=== PATIENT | male | born 1955 | race Caucasian/White ===

== ENCOUNTER 2021-04-17 14:39 | Inpatient (IN) | payer MEDICARE ==
[~2021-04-17] VITALS: Ht 190.5 cm; Wt 112.4 kg
[~2021-04-17 14:39] MED LIST: ANTACID; BP MED; CELE200 PO; CYCL10 PO; GLYBURIDE; LISI5 PO; METF500 PO; PANT40 PO; PRAV20 PO
[2021-04-17 15:16] LABS: BASOPHILS ABSOLUTE AUTO 0.04 K/mm3 (0.00-0.23); BASOPHILS PERCENT AUTO 1 % (0-2); EOSINOPHILS ABSOLUTE AUTO 0.18 K/mm3 (0.00-0.68); EOSINOPHILS PERCENT AUTO 3 % (0-6); Hematocrit 50.4 % (37.0-53.0); Hemoglobin 16.4 g/dL (13.5-17.5); IMMATURE GRAN ABSOLUTE AUTO 0.02 K/mm3 (0.00-0.10); IMMATURE GRAN PERCENT AUTO 0 % (0-1); LYMPHOCYTES PERCENT AUTO 31 % (21-46); MONOCYTES ABSOLUTE AUTO 0.59 K/mm3 (0.16-1.47); MONOCYTES PERCENT AUTO 8 % (4-13); Mean Corpuscular HGB 28.5 pg (26.0-34.0); Mean Corpuscular HGB Conc 32.5 g/dL (31.5-36.5); Mean Corpuscular Volume 88 fL (80-100); Mean Platelet Volume 10.1 fL (9.1-12.4); NEUTROPHILS ABSOLUTE AUTO 3.99 K/mm3 (1.96-9.15); NEUTROPHILS PERCENT AUTO 57 % (41-73); Platelet Count 178 K/mm3 (150-400); RDW Coefficient Variation 14.1 % (11.7-14.2); RDW Standard Deviation 44.7 fL (35.1-46.3); Red Blood Cell Count 5.76 M/mm3 (4.30-5.90); White Blood Cell Count 7.02 K/mm3 (4.00-11.30)
[2021-04-17 15:43] LABS: Alanine Aminotransfer (ALT/SGP 41 U/L (12-78); Albumin, Blood 3.9 g/dL (3.4-5.0); Albumin/Globulin Ratio 0.9 (0.8-1.8); Alk Phos 195 U/L (50-136); Anion Gap 7 mmol/L (6-16); Aspartate Aminotrans (AST/SGOT 31 U/L (12-37); Bilirubin, Total 0.6 mg/dL (0.1-1.0); Blood Urea Nitrogen 16 mg/dL (8-24); Bun/Creatinine Ratio 16.3 (12.0-20.0); CO2, Blood 25 mmol/L (21-32); Calcium, Blood 9.9 mg/dL (8.5-10.1); Chloride, Blood 107 mmol/L (98-108); Creatinine, Blood 0.98 mg/dL (0.60-1.20); Globulin, Blood 4.4 g/dL (2.2-4.0); Glomerular Filtration Rate >60 (60-); Glucose, Blood 149 mg/dL (70-99); Potassium, Blood 4.4 mmol/L (3.5-5.5); Sodium, Blood 139 mmol/L (136-145); Total Protein, Blood 8.3 g/dL (6.4-8.2); Troponin I 0.025 ng/mL (0.000-0.040)
[2021-04-17] MEDS ORDERED: METFORMIN HCL1000 M7 PO (16:44)
[2021-04-17] MEDS ORDERED: JANTOVEN5 M2 PO (16:45)
[2021-04-17] MEDS ORDERED: Prinivil10 MG PO (16:45)
[2021-04-17] MEDS ORDERED: WARF5 PO (17:53)
[2021-04-17 18:44] LABS: International Normalized Ratio 1.56; Prothrombin Time Results 16.4 Sec (9.7-11.5)
[2021-04-17] MEDS ORDERED: JARDIANCE25 MG PO (20:18)
[2021-04-18 03:30] LABS: International Normalized Ratio 1.48; Prothrombin Time Results 15.6 Sec (9.7-11.5)
--- NOTE | 2021-04-18 06:44 | NUR ---
SHIFT SUMMARY: SHIRA WAS ADMITTED TO THE FLOOR LAST NIGHT FOR CHEST PAIN THAT STARTED 3 WEEKS AGO. PAIN HAS BEEN SLOWLY GETTING WORSE AND LAST NIGHT WAS ENOUGH THAT THE MADE HIM COME IN. STATES CHEST HURTS MID-STERNUM AND HE HAS TO FIND A PLACE TO SIT IMMEDIATLEY OR GETS REALLY BAD. ONCE SITTING FOR A SHORT BIT IT GOES AWAY. SOMETIMES IT WILL START RIGHT BACK UP BUT TENDS TO BE SITUATED AROUND LONG ACTIVITY. HE GETS SOB AND SOME TIMES WILL HAVE THE PAIN UP THE LEFT SIDE OF HIS NECK. HAS NO HISTORY OF HEART PROBLEMS. HX OF PE BUT CT WAS NEGATIVE FOR PE. LUNGS ARE CLEAR. HR SINUS ON TELE. AOX3, INDEPENDENT IN THE ROOM. TROPONIN HAVE BEEN NEGATIVE. BNP IS NEGATIVE. PT WAS SLIGHTLY ELEVATED, BUT REST OF LABS WERE NORMAL. NO EDEMA NOTED. ON RA. VITALS ARE WNL, AFEBRILE. HAS BEEN GOOD ALL NIGHT. NPO SINCE 4 BUT DID HAVE POP HE BROUGHT IT UP WITH HIM TO THE FLOOR. WILL REPORT TO DAYSHIFT. CALL LIGHT IS IN REACH.
--- NOTE | 2021-04-19 04:24 | NUR ---
SHIFT SUMMARY NO ACUTE CHANGES TO REPORT THIS SHIFT, PT HAS RESTED T/O SHIFT. HE HAS DENIED CHEST PAIN. INDEPENDENT IN THE ROOM. RESP E/U ON RA. NSR ON TELE. PLAN IS FOR SECOND PORTION OF STRESS TEST TODAY, AND THEN POSSIBLE DC. PT IS AWARE OF CURRENT PLAN. BED IN LOWEST POSITION, CALL LIGHT WITHIN REACH.
[2021-04-19 05:08] LABS: International Normalized Ratio 1.36; Prothrombin Time Results 14.4 Sec (9.7-11.5)
--- NOTE | 2021-04-19 18:46 | NUR ---
a+o, completed 2nd half of stress test today, air, saline locked, call light in reach, independant in rm, able to make needs known, looking forward to going home tomorrow, family in to visit, will continue to monitor and treat until share bsr with noc nurse and pt
--- NOTE | 2021-04-20 03:37 | NUR ---
SHIFT SUMMARY PATIENT HAD NO ACUTE CHANGES OBSERVED. AXOX 4 AND INDEPENDENT IN ROOM. DENIES CHEST PAIN, SOB, AND N/V. VSS/AFEBRILE. ON ROOM AIR. PIVS REMAIN INTACT. SOW [employer] TECHNICIAN REPORTS ST 105. CBG 154. COOPERATIVE WITH CARE. CALL LIGHT IN REACH. BED IN LOWEST POSITION. WILL CONTINUE TO MONITOR UNTIL DAY SHIFT NURSE ASSUMES CARE.
[2021-04-20 05:26] LABS: International Normalized Ratio 1.49; Prothrombin Time Results 15.7 Sec (9.7-11.5)
--- NOTE | 2021-04-20 10:59 | NUR ---
ECHOCARDIOGRAM COMPLETE
[2021-04-20 16:40] LABS: SARS-Cov-2 (COVID-19) PCR, MMC NEGATIVE (NEGATIVE)
--- NOTE | 2021-04-20 18:22 | NUR ---
PT TRANSFERRED FROM [facility] PRIOR TO BEING ON MED UNIT. PT IS ALERT AND ORIENTED AND VERY PLEASANT AND COOPERATIVE WITH CARES. UPON ARRIVAL BP ELEVATED, TR SITE WAS ACHING. COREG GIVEN TO BRING BP WNL AND 2CC REMOVED FROM TR AT 1725 ONCE BP WAS NORMAL. NO BLEEDING AT SITE AND PT REPORTED INSTANT RELIEF. PT HAS HAD NO COMPLAINTS. AWAITING [facility] TRANSFER TO [facility] SATURDAY. CALL LIGHT WITHIN REACH
--- NOTE | 2021-04-21 06:12 | NUR ---
PATIENT IS ALERT AND ORIENTATED, ABLE TO MAKE NEEDS KNOWN, USES CALL LIGHT APPROPRIATELY, INDENPENDENT TO THE RESTROOM. PATIENT REACHED HOMOSTATISIS AT 0200 TR BAND IS NO LONGER ON THE RIGHT RADIAL, SPLINT IS IN PLACE. PATIENT IS NERVOUS ABOUT GOING TO [facility]. NO COMPLAINTS OF CHEST PRESSURE, PAIN, AND /OR SOB THROUGHOUT THE NIGHT.
--- NOTE | 2021-04-21 08:00 | NUR ---
pt is being [facility] transfered for bypass. he is aware, waiting on room.
--- NOTE | 2021-04-21 08:00 | NUR ---
pt laying in bed watching tv, a/ox3, pleasant and cooperative with care, follows commands well, denies pain at this time, reports his chest discomfort started about three weeks ago, lungs are clear dim in bases, resp even and unlabord, no cough noted, hrr, tele in place running sr per monitor, see strip, no edema noted, ppp+2, cap refill <3sec, vs stable, afebrile, iv site is clear and patent, btx4, abd flat soft nontender, voids without diff, skin c/w/d, maew, em, call light in reach.
--- NOTE | 2021-04-21 08:39 | NUR ---
AT Dr Gonzalez's request, transfer center was called to find out status of [facility] transfer. Reported to February in heart center *(Dr. Gonzalez I am told is in a procedure) on the cardilogists phone that there is currently no bed availability and no pending discharges yet this morning. I asked also that the doctor put in the [facility] transfer orders in, as we do not have them.
--- NOTE | 2021-04-21 15:30 | NUR ---
pt is being transfered to [facility] in [place], report was given to recieving nurse, left via gurkaterine, in attendence, report and paper work given to emt.
== END 2021-04-21 15:32 | disposition short-term general hospital (02) | DRG 287 ==
LOC: ER 14:39 → MEDS 14:40 → PCU 04-20 13:46
PROVIDERS: Emergency Medicine; Internal Medicine Cardiovascular Disease; Pharmacist; Physician Assistant; ADMIT Family Medicine
PROC: B2111ZZ Fluoroscopy of Multiple Coronary Arteries using Low Osmolar Contrast (ICD-10-PCS; principal; 2021-04-20)
PROC: 4A033BC Measurement of Arterial Pressure, Coronary, Percutaneous Approach (ICD-10-PCS; 2021-04-20)
PROC: B41D1ZZ Fluoroscopy of Aorta and Bilateral Lower Extremity Arteries using Low Osmolar Contrast (ICD-10-PCS; 2021-04-20)
DX: I25.10 Atherosclerotic heart disease of native coronary artery without angina pectoris (principal); K21.9 Gastro-esophageal reflux disease without esophagitis; E78.5 Hyperlipidemia, unspecified; Z20.822 Contact with and (suspected) exposure to COVID-19; Z96.651 Presence of right artificial knee joint; E11.9 Type 2 diabetes mellitus without complications; I95.9 Hypotension, unspecified; I10 Essential (primary) hypertension; E66.9 Obesity, unspecified; Z86.711 Personal history of pulmonary embolism; Z79.84 Long term (current) use of oral hypoglycemic drugs; Z79.899 Other long term (current) drug therapy; Z79.01 Long term (current) use of anticoagulants; Z98.890 Other specified postprocedural states; Z68.30 Body mass index [BMI] 30.0-30.9, adult
CPT/HCPCS: 36415; 71046; 71260; 75630; 76937; 78452; 80053; 82947; 83880; 84484; 85025; 85347; 85610; 93005; 93010; 93017; 93454; 93571; 99152; 99153; 99285-25; A9270; A9500; C1769; C1887; C1894; C8923; G0378; J0706; J1650; J1815; J2250; J2785; J3010; J7030; Q9957; Q9967; U0004

== ENCOUNTER 2021-05-07 13:54 | Emergency (ER) | payer MEDICARE ==
[~2021-05-07] VITALS: Ht 190.5 cm; Wt 106.6 kg
[~2021-05-07 13:54] MED LIST changes: +JANTOVEN5 M2 PO; +JARDIANCE25 MG PO; +METFORMIN HCL1000 M7 PO; +Prinivil10 MG PO; +WARF5 PO
== END 2021-05-07 14:31 | disposition home or self-care (01) ==
LOC: ER 13:54
DX: Z48.01 Encounter for change or removal of surgical wound dressing (principal); E78.5 Hyperlipidemia, unspecified; Z79.01 Long term (current) use of anticoagulants; Z79.899 Other long term (current) drug therapy
CPT/HCPCS: 99283

== ENCOUNTER → 2022-01-03 | Outpatient (CLI) | payer MEDICARE | END | disposition home or self-care (01) | LOC: LAB SHORT 11:43 | DX: C44.42 Squamous cell carcinoma of skin of scalp and neck (principal); L81.4 Other melanin hyperpigmentation; L57.9 Skin changes due to chronic exposure to nonionizing radiation, unspecified | CPT/HCPCS: 88305 ==

== ENCOUNTER → 2022-01-29 | Outpatient (CLI) | payer MEDICARE | END | disposition home or self-care (01) | LOC: PLD 11:13 → LAB SHORT 11:13 | DX: L57.0 Actinic keratosis (principal); L81.4 Other melanin hyperpigmentation | CPT/HCPCS: 88305 ==

== ENCOUNTER 2023-07-01 12:35 | Inpatient (IN) | payer MEDICARE ==
[~2023-07-01] VITALS: Ht 190.5 cm; Wt 121.0 kg
[2023-07-01 13:30] LABS: BASOPHILS ABSOLUTE AUTO 0.05 K/mm3 (0.00-0.23); BASOPHILS PERCENT AUTO 1 % (0-2); EOSINOPHILS ABSOLUTE AUTO 0.12 K/mm3 (0.00-0.68); EOSINOPHILS PERCENT AUTO 1 % (0-6); Hematocrit 44.5 % (37.0-53.0); Hemoglobin 15.1 g/dL (13.5-17.5); IMMATURE GRAN ABSOLUTE AUTO 0.03 K/mm3 (0.00-0.10); IMMATURE GRAN PERCENT AUTO 0 % (0-1); LYMPHOCYTES ABSOLUTE AUTO 1.87 K/mm3 (0.84-5.20); LYMPHOCYTES PERCENT AUTO 18 % (21-46); MONOCYTES ABSOLUTE AUTO 0.67 K/mm3 (0.16-1.47); MONOCYTES PERCENT AUTO 7 % (4-13); Mean Corpuscular HGB 28.8 pg (26.0-34.0); Mean Corpuscular HGB Conc 33.9 g/dL (31.5-36.5); Mean Corpuscular Volume 85 fL (80-100); NEUTROPHILS ABSOLUTE AUTO 7.51 K/mm3 (1.96-9.15); NEUTROPHILS PERCENT AUTO 73 % (41-73); Platelet Count 164 K/mm3 (150-400); RDW Coefficient Variation 13.7 % (11.7-14.2); RDW Standard Deviation 42.7 fL (35.1-46.3); Red Blood Cell Count 5.24 M/mm3 (4.30-5.90); White Blood Cell Count 10.25 K/mm3 (4.00-11.30)
[2023-07-01 13:46] LABS: Albumin, Blood 3.5 g/dL (3.4-5.0); Albumin/Globulin Ratio 0.9 (0.8-1.8); Bilirubin, Total 0.6 mg/dL (0.1-1.0); Bun/Creatinine Ratio 11.4 (12.0-20.0); Calcium, Blood 9.4 mg/dL (8.5-10.1); Creatinine, Blood 1.05 mg/dL (0.60-1.20); Potassium, Blood 4.4 mmol/L (3.5-5.5); Total Protein, Blood 7.5 g/dL (6.4-8.2)
[2023-07-01 19:16] LABS: International Normalized Ratio 3.34; Prothrombin Time Results 32.8 Sec (9.7-11.5)
[2023-07-01] MEDS ORDERED: WARF7.5 PO (19:26)
[2023-07-01 22:16] VITALS: BP 144/80
--- NOTE | 2023-07-01 23:54 | NUR ---
PT ADMITTED AFEBRILE,BUT IS SHIVERING AND C/O FEELING "FREEZING" FOLLOW UP TEMPS 100.2 THEN [address] OH AND RECEIVED ORDERS.
[2023-07-02] VITALS (9 sets, daily range): BP systolic 102–156; BP diastolic 59–98
--- NOTE | 2023-07-02 02:54 | NUR ---
PT RECEIVED 1 LITER NS BOLUS AND IBUPROFEN PER ORDERS.NO VOID YET SINCE ARRIVAL TO FLOOR.PT VERB VOIDED IN ER.SEE BLADDER SCAN RESULTS.PT NOW AFEBRILE AT 98.7.
[2023-07-02 04:37] LABS: BASOPHILS ABSOLUTE AUTO 0.04 K/mm3 (0.00-0.23); BASOPHILS PERCENT AUTO 0 % (0-2); EOSINOPHILS ABSOLUTE AUTO 0.05 K/mm3 (0.00-0.68); EOSINOPHILS PERCENT AUTO 1 % (0-6); Hematocrit 38.6 % (37.0-53.0); Hemoglobin 12.9 g/dL (13.5-17.5); IMMATURE GRAN ABSOLUTE AUTO 0.05 K/mm3 (0.00-0.10); IMMATURE GRAN PERCENT AUTO 1 % (0-1); LYMPHOCYTES ABSOLUTE AUTO 1.07 K/mm3 (0.84-5.20); LYMPHOCYTES PERCENT AUTO 10 % (21-46); MONOCYTES ABSOLUTE AUTO 0.73 K/mm3 (0.16-1.47); MONOCYTES PERCENT AUTO 7 % (4-13); Mean Corpuscular HGB 28.6 pg (26.0-34.0); Mean Corpuscular HGB Conc 33.4 g/dL (31.5-36.5); Mean Corpuscular Volume 86 fL (80-100); Mean Platelet Volume 10.2 fL (9.1-12.4); NEUTROPHILS ABSOLUTE AUTO 8.78 K/mm3 (1.96-9.15); NEUTROPHILS PERCENT AUTO 82 % (41-73); Platelet Count 135 K/mm3 (150-400); RDW Standard Deviation 43.7 fL (35.1-46.3); Red Blood Cell Count 4.51 M/mm3 (4.30-5.90); White Blood Cell Count 10.72 K/mm3 (4.00-11.30)
[2023-07-02 04:39] LABS: International Normalized Ratio 3.04
[2023-07-02 04:53] LABS: Bun/Creatinine Ratio 12.4 (12.0-20.0); Calcium, Blood 8.8 mg/dL (8.5-10.1); Creatinine, Blood 1.13 mg/dL (0.60-1.20)
[2023-07-02 05:59] LABS: Source, Urine Voided
[2023-07-02 06:09] LABS: Appearance, Urine Clear (Clear); Bilirubin, Urine Neg (Neg); Blood, Urine 1+ (Neg); Color, Urine Yellow (P-Yellow); Glucose Qualitative, Urine 1+ (Neg); Ketones, Urine 1+ (Neg); Leukocyte Esterase, Urine Neg (Neg); Nitrite, Urine Neg (Neg); Protein, Urine 2+ (Neg); Urobilinogen, Urine NORM (Normal)
[2023-07-02 06:25] LABS: Bacteria Few /hpf; Squamous Epithelial Cells Few /hpf (Few); White Blood Cells, Urine 0-2 /hpf (0-5)
--- NOTE | 2023-07-02 08:08 | NUR ---
SUMMARY PT VOIDED WITH U/A SENT. AFEBRILE. RESTING QUIETLY.NPO FOR LIKELY OR TODAY.
--- NOTE | 2023-07-02 14:55 | NUR ---
Pt. is awake in bed and welcomes my visit. Pt. is pleasant and is awaiting surgery for appedicitis. Facilitate a lengthy life review and listen with empathy, interest, and a calming presence. Pt. displays evidence of trust and confidence as he awaits suregery. Considered matters of keith and belief. Prayed with Pt. pt. verbalized gratitude for the spiritual care visit and welcomed [facility] graduate rn to return.
--- NOTE | 2023-07-02 16:21 | NUR ---
[facility] TRANSFUSION FINISHED, LUNGS CLEAR, DENIES ANY PAIN OR ANY DISCOMFORT AT THIS TIME, TEMP INCREASED FROM 98.0 TO 100.3, DR. ORTIZ NOTIFIED, ORDERED TYLENOL, TOLERATING CLEAR LIQUIDS WELL, INDEPENDENT IN ROOM, PT STATES DR. THOMPSON SAW HIM TODAY AND PLAN IS FOR OR TOMORROW, NO OTHER CHANGES THIS SHIFT.
[2023-07-02 18:14] LABS: International Normalized Ratio 1.59; Prothrombin Time Results 16.3 Sec (9.7-11.5)
[2023-07-03] VITALS (14 sets, daily range): BP systolic 101–156; BP diastolic 43–89
[2023-07-03 05:05] LABS: BASOPHILS ABSOLUTE AUTO 0.03 K/mm3 (0.00-0.23); BASOPHILS PERCENT AUTO 0 % (0-2); EOSINOPHILS ABSOLUTE AUTO 0.09 K/mm3 (0.00-0.68); EOSINOPHILS PERCENT AUTO 1 % (0-6); Hematocrit 36.5 % (37.0-53.0); Hemoglobin 12.1 g/dL (13.5-17.5); IMMATURE GRAN ABSOLUTE AUTO 0.04 K/mm3 (0.00-0.10); IMMATURE GRAN PERCENT AUTO 1 % (0-1); LYMPHOCYTES ABSOLUTE AUTO 1.19 K/mm3 (0.84-5.20); LYMPHOCYTES PERCENT AUTO 17 % (21-46); MONOCYTES ABSOLUTE AUTO 0.66 K/mm3 (0.16-1.47); MONOCYTES PERCENT AUTO 10 % (4-13); Mean Corpuscular HGB 28.4 pg (26.0-34.0); Mean Corpuscular HGB Conc 33.2 g/dL (31.5-36.5); Mean Corpuscular Volume 86 fL (80-100); Mean Platelet Volume 9.9 fL (9.1-12.4); NEUTROPHILS ABSOLUTE AUTO 4.96 K/mm3 (1.96-9.15); NEUTROPHILS PERCENT AUTO 71 % (41-73); Platelet Count 129 K/mm3 (150-400); RDW Coefficient Variation 13.8 % (11.7-14.2); RDW Standard Deviation 42.8 fL (35.1-46.3); Red Blood Cell Count 4.26 M/mm3 (4.30-5.90); White Blood Cell Count 6.97 K/mm3 (4.00-11.30)
[2023-07-03 05:17] LABS: International Normalized Ratio 1.49; Prothrombin Time Results 15.3 Sec (9.7-11.5)
[2023-07-03 05:35] LABS: Anion Gap 7 mmol/L (6-16); Blood Urea Nitrogen 10 mg/dL (8-24); Bun/Creatinine Ratio 9.8 (12.0-20.0); CO2, Blood 24 mmol/L (21-32); Calcium, Blood 8.9 mg/dL (8.5-10.1); Chloride, Blood 105 mmol/L (98-108); Creatinine, Blood 1.02 mg/dL (0.60-1.20); Glomerular Filtration Rate 79 (60-); Glucose, Blood 142 mg/dL (70-99); Potassium, Blood 3.8 mmol/L (3.5-5.5); Sodium, Blood 136 mmol/L (136-145)
--- NOTE | 2023-07-03 06:53 | NUR ---
SHIFT SUMMARY NOC. PT VERBALIZED RESTING WELL THIS SHIFT. PT HAS BEEN NPO SINCE MIDNIGHT DUE TO EXPECTED SURGERY TODAY. PT MEDICATED FOR PAIN 1 TIME THIS SHIFT. PT VERBALIZED IMPROVEMENT WITH MEDICATION.
--- NOTE | 2023-07-03 14:42 | NUR ---
PT TO OR AT ABOUT 1330
--- NOTE | 2023-07-03 18:48 | NUR ---
POST OP: REPORT RECEIVED FROM MANAGER TRANSPORT ANGELLA, PT TO UNIT AT 1800. PT IS ORIENTED, DROWSY. AWAKENS TO VOICE. VSS, SURGICAL SITE WNL. PT OFFERED ICE CHIPS, JELLO, PT DOESN'T WANT TO EAT RIGHT NOW AND IS SLEEPY. CALL LIGHT IN REACH. WILL PASS REPORT TO NOC SEVERO
[2023-07-04 06:06] VITALS: BP 142/91
[2023-07-04 07:22] VITALS: BP 145/85
[2023-07-04 07:30] LABS: BASOPHILS ABSOLUTE AUTO 0.02 K/mm3 (0.00-0.23); BASOPHILS PERCENT AUTO 0 % (0-2); EOSINOPHILS PERCENT AUTO 0 % (0-6); Hematocrit 40.3 % (37.0-53.0); Hemoglobin 13.7 g/dL (13.5-17.5); IMMATURE GRAN ABSOLUTE AUTO 0.06 K/mm3 (0.00-0.10); IMMATURE GRAN PERCENT AUTO 1 % (0-1); LYMPHOCYTES ABSOLUTE AUTO 0.82 K/mm3 (0.84-5.20); LYMPHOCYTES PERCENT AUTO 13 % (21-46); MONOCYTES ABSOLUTE AUTO 0.55 K/mm3 (0.16-1.47); MONOCYTES PERCENT AUTO 9 % (4-13); Mean Corpuscular HGB 28.7 pg (26.0-34.0); Mean Corpuscular Volume 85 fL (80-100); NEUTROPHILS ABSOLUTE AUTO 4.98 K/mm3 (1.96-9.15); NEUTROPHILS PERCENT AUTO 77 % (41-73); RDW Coefficient Variation 13.6 % (11.7-14.2); RDW Standard Deviation 42.6 fL (35.1-46.3); Red Blood Cell Count 4.77 M/mm3 (4.30-5.90); White Blood Cell Count 6.43 K/mm3 (4.00-11.30)
[2023-07-04 08:04] LABS: Bun/Creatinine Ratio 11.3 (12.0-20.0); Calcium, Blood 9.2 mg/dL (8.5-10.1); Creatinine, Blood 1.06 mg/dL (0.60-1.20); Potassium, Blood 4.5 mmol/L (3.5-5.5)
[2023-07-04 08:17] LABS: Mean Platelet Volume 10.1 fL (9.1-12.4); Platelet Count 100 K/mm3 (150-400)
[2023-07-04 10:52] LABS: International Normalized Ratio 1.55; Prothrombin Time Results 15.9 Sec (9.7-11.5)
[2023-07-04] MEDS ORDERED: Acetaminophen325 M1 PO (10:54)
[2023-07-04] MEDS ORDERED: FAMO20 PO (10:54)
[2023-07-04] MEDS ORDERED: DOCU100 PO (10:54)
[2023-07-04] MEDS ORDERED: HYDR1TAB94 PO (10:55)
[2023-07-04] MEDS ORDERED: AMOCLA875 PO (10:58)
[2023-07-04] MEDS ORDERED: SENNA LAXATIVE8.6 MG PO (11:00)
[2023-07-04] MEDS ORDERED: VISBIOME 112.51 EACH PO (11:01)
--- NOTE | 2023-07-04 11:05 | NUR ---
Pt. is awake and sitting in a chair awaiting dischagre when he welcomes my visit. Pt. is pleasant and verbalizes appreciattion for the great care he has received as a Pt. at our facility. Facilitate extended life review and re-establish rapport. Pt. displays evidence of confidence and trust. Prayed with Pt. Pt. verbalized gratitude for the spiritual care visit.
--- NOTE | 2023-07-04 12:23 | NUR ---
DISCHARGE SUMMARY POD1 LAP APPY, A/OX4, VSS, TOLERATING PO, AMBULATING INDEPENDENTLY, LAP SITES C/D/I c STERI STRIPS, REPORTS PAIN AT 2 OUT OF 10 AND DENIES NEEDING NARCOTICS. MEDICATIONS FAXED TO [facility] PER PATIENT REQUEST, REMOVED IV ACCESS PRIOR TO DC. DISCUSSED DISCHARGE INSTRUCTIONS WITH HIM AND HIS INCLUDING HOME CARE, MEDICATIONS, AND FOLLOW UP APPOINTMENTS. NO QUESTIONS AT THIS TIME. HE LEFT AMBULATORY WITH HIS TO GO HOME.
== END 2023-07-04 12:23 | disposition home or self-care (01) | DRG 342 ==
LOC: ER 12:35 → ERHOLD 12:36 → SURS 12:36
PROVIDERS: Internal Medicine; Student in an Organized Health Care Education/Training Program; Surgery; ADMIT Hospitalist
PROC: 0DTJ4ZZ Resection of Appendix, Percutaneous Endoscopic Approach (ICD-10-PCS; principal; 2023-07-03 12:30)
DX: K35.80 Unspecified acute appendicitis (principal); D68.32 Hemorrhagic disorder due to extrinsic circulating anticoagulants; D68.69 Other thrombophilia; E11.9 Type 2 diabetes mellitus without complications; I10 Essential (primary) hypertension; I25.10 Atherosclerotic heart disease of native coronary artery without angina pectoris; E78.5 Hyperlipidemia, unspecified; E66.9 Obesity, unspecified; M54.9 Dorsalgia, unspecified; G89.29 Other chronic pain; Z96.651 Presence of right artificial knee joint; T45.515A Adverse effect of anticoagulants, initial encounter; Z86.711 Personal history of pulmonary embolism; Z95.1 Presence of aortocoronary bypass graft; Z79.811 Long term (current) use of aromatase inhibitors; Z79.84 Long term (current) use of oral hypoglycemic drugs; Z79.02 Long term (current) use of antithrombotics/antiplatelets; Z68.33 Body mass index [BMI] 33.0-33.9, adult
CPT/HCPCS: 36415; 74177; 80048; 80053; 80069; 81001; 82947; 83036; 83605; 83690; 84484; 85025; 85610; 85730; 86900; 86901; 93005; 93010; 96365-59; 96366; 96375; 96376; 99285-25; A9270; G0378; J1100; J1170; J1815; J1885; J2405; J2543; J2704; J3010; J7030; J7050; J7060; J7120; P9059; Q9967